=== PATIENT | male | born 1980 | race African-American/Black ===

== ENCOUNTER 2016-11-26 09:19 | Day surgery (SDC) | payer OTHER ==
--- NOTE | ~2016-11-26 | OP ---
Record Of Operation [facility] [address] [place]. [address] NAME: SAM HENNESSY : 78 STATUS : [facility]#: [id number] AGE: 36 ADM/REG DATE : 11/26/16 MR#: [id number] REPORT SERV DATE: 11/26/16 DICTATED BY: WENDI ORDAZ DATE: 11/26/16 REPORT STATUS : Draft TRANSCRIBED BY: MODL DATE: 11/26/16 DATE OF PROCEDURE: 11/26/2016 Under operative note on Sam Hennessy date 11/26/2016. PREOPERATIVE DIAGNOSIS: Umbilical hernia. POSTOPERATIVE DIAGNOSIS: Umbilical hernia. OPERATION: Repair of umbilical hernia. FINDINGS: The patient had incarcerated fat in the umbilical hernia. SUMMARY: After adequate general anesthesia, prep and drape, an infraumbilical incision was made, carried down through the skin and subcutaneous tissue down to the fascia. The hernia sac was dissected free from the umbilicus with sharp dissection. Hemostasis was obtained using cautery unit. A portion of the contents of the sac was then divided between Jody clamps, tied with 0 Vicryl suture. The small 2 cm defect was then closed with interrupted 0 Nurolon suture in interrupted fashion transversely. After adequate irrigation, good hemostasis was obtained. The umbilicus was sutured to the anterior abdominal wall with 3-0 Vicryl suture. A 3-0 Vicryl was used for the subcutaneous tissue and the skin was closed in a routine fashion. Pressure dressing was applied. The patient tolerated the procedure well and taken to the recovery room in satisfactory condition. LEW/DAVID Wendi Ordaz M.D. / [id number] CC: Fabiola Marie
[~2016-11-26 09:19] MED LIST: VITC500 PO; ZANTAC 150 PO; ZINC PO; [UNRECOGNIZED DRUG - REMARK]
== END 2016-11-26 15:28 | disposition home or self-care (01) ==
LOC: SDC 09:19
PROVIDERS: Specialist
PROC: 0WQF0ZZ Repair Abdominal Wall, Open Approach (ICD-10-PCS; principal; 2016-11-26 10:45)
DX: K42.9 Umbilical hernia without obstruction or gangrene (principal); K21.9 Gastro-esophageal reflux disease without esophagitis; F17.210 Nicotine dependence, cigarettes, uncomplicated; L30.9 Dermatitis, unspecified; Z98.890 Other specified postprocedural states; Z79.899 Other long term (current) drug therapy
CPT/HCPCS: 87641; 88302; J0360; J0690; J2250; J3010